=== PATIENT | female | born 1980 | race Hispanic/Latino ===

== ENCOUNTER → 2023-11-29 09:04 | Outpatient (CLI) | payer OTHER, SELFPAY ==
[2023-11-29 09:54] LABS: Hemoglobin A1C% w Est Avg Glu 5.7 % (4.0-6.0)
[2023-11-29 10:27] LABS: Cholesterol 188 mg/dL (140-199); HDL Cholesterol 61 mg/dL (40-60); LDL Cholesterol Calculated 104 mg/dL (<100); Triglycerides 114 mg/dL (35-150)
[2023-11-29 10:45] LABS: TSH w/ Reflex to FT4 2.38 uIU/mL (0.47-4.68)
== END ==
PROVIDERS: PCP Family Medicine; Referring Provider Family Medicine; Visit Provider Family Medicine
DX: Z13.220 Encounter for screening for lipoid disorders (principal); Z13.1 Encounter for screening for diabetes mellitus; R63.5 Abnormal weight gain; Z83.3 Family history of diabetes mellitus
CPT/HCPCS: 36415; 80061; 83036; 84443